=== PATIENT | male | born 1945 | race Caucasian/White ===

== ENCOUNTER 2018-07-20 21:33 | Emergency (ER) | payer MEDICARE, OTHER ==
[~2018-07-20] VITALS: Ht 177.8 cm; Wt 79.5 kg
[~2018-07-20 21:33] MED LIST: NOCURR
[2018-07-20] MEDS ORDERED: METF500T7 PO (22:01)
[2018-07-20] MEDS ORDERED: GABA-531 PO (22:01)
[2018-07-20] MEDS ORDERED: LISI-662 PO (22:01)
[2018-07-20] MEDS ORDERED: CARV25 PO (22:01)
[2018-07-20] MEDS ORDERED: ISOS30TA6 PO (22:01)
[2018-07-20] MEDS ORDERED: ASPI81 PO (22:01)
[2018-07-20] MEDS ORDERED: TAMS-1 PO (22:01)
[2018-07-21] MEDS ORDERED: MUPIROCIN CALCIUM 2% 22 GM OINTMENT TP ONE
[2018-07-21 00:47] VITALS: BP 122/60
== END 2018-07-21 00:52 | disposition home or self-care (01) ==
LOC: EMS 21:34
DX: S31.114A Laceration without foreign body of abdominal wall, left lower quadrant without penetration into peritoneal cavity, initial encounter (principal); I11.0 Hypertensive heart disease with heart failure; I50.9 Heart failure, unspecified; E11.9 Type 2 diabetes mellitus without complications; Z79.82 Long term (current) use of aspirin; Z79.84 Long term (current) use of oral hypoglycemic drugs; W54.0XXA Bitten by dog, initial encounter; Y93.89 Activity, other specified; Y92.89 Other specified places as the place of occurrence of the external cause; Y99.8 Other external cause status